=== PATIENT | female | born 1945 | race Caucasian/White ===

== ENCOUNTER → 2018-09-14 | Outpatient (CLI) | payer MEDICARE, BC, OTHER ==
--- NOTE | 2018-09-14 16:16 | RADIOLOGY REPORT (SQ) ---
EXAM DESCRIPTION: MRI CERVICAL SPINE WITHOUT COMPLETED DATE/TIME: 09/14/2018 4:03 pm REASON FOR STUDY: CERVICALGIA M54.2 CERVICALGIA COMPARISON: None. TECHNIQUE: Sagittal and Axial imaging includes T1, T2, STIR and gradient echo sequences. LIMITATIONS: None. FINDINGS: ALIGNMENT: Straightening of cervical lordosis VERTEBRAE: Intact. BONE MARROW: Normal. No marrow replacement or reactive changes. DISCS: Diffuse decreased T2 weighted intervertebral disc signal. Disc space loss of height at C5-6 a nd C6-7 HARDWARE: None in the spine. CORD AND BASE OF BRAIN: Normal in size and signal intensity. SOFT TISSUES: No soft tissue masses. C1-C2: No significant spinal stenosis. C2-C3: No significant spinal stenosis or exit foraminal stenosis. C3-C4: No significant spinal stenosis or exit foraminal stenosis. C4-C5: No significant spinal stenosis or exit foraminal stenosis. C5-C6: Broad diffuse posterior disc bulge and bony spurring is present, partly effacing the ventral t hecal sac and abutting the ventral cord without cord flattening or abnormal intrinsic cord signal. B orderline central canal narrowing High-grade bilateral foraminal narrowing from facet and uncovertebr al hypertrophy. C6-C7: Broad diffuse posterior disc bulge and bony spurring partly effaces the ventral thecal sac wit hout cord flattening. Borderline central canal narrowing. Moderate bilateral foraminal narrowing le ft greater than right C7-T1: No significant spinal stenosis or exit foraminal stenosis. UPPER THORACIC: Incompletely imaged. No significant spinal stenosis or exit foraminal stenosis. OTHER: Diffuse thyromegaly IMPRESSION: Degenerative disc changes most pronounced at C5-6 and C6-7 TECHNICAL DOCUMENTATION: JOB ID: [id number]- All Rights Reserved Reading location - IP/workstation name: [email or web address]
== END ==
LOC: RAD 15:26
PROVIDERS: ATTEND Orthopaedic Surgery Hand Surgery
DX: M50.323 Other cervical disc degeneration at C6-C7 level (principal)
CPT/HCPCS: 72141

== ENCOUNTER → 2018-09-20 | Outpatient (CLI) | payer MEDICARE, BC, OTHER | LOC: RAD 10:19 | PROVIDERS: ATTEND Orthopaedic Surgery Hand Surgery | DX: M54.2 Cervicalgia (principal); Z53.8 Procedure and treatment not carried out for other reasons ==

== ENCOUNTER → 2020-05-21 | Day surgery (SDC) | payer MEDICARE, BC, OTHER ==
[2020-05-18 10:50] LABS: HEMATOCRIT 38.4 % (36.0-47.0); HEMOGLOBIN 12.9 g/dL (12.0-15.5); MEAN CORPUSCULAR HEMOGLOBIN 29.3 pg (27.0-33.4); MEAN CORPUSCULAR HGB CONC 33.5 g/dL (32.0-36.0); MEAN CORPUSCULAR VOLUME 88 fl (80-97); PLATELET COUNT 227 10^3/uL (150-450); RED BLOOD COUNT 4.39 10^6/uL (3.72-5.28); RED CELL DISTRIBUTION WIDTH 13.8 % (11.5-14.0); WHITE BLOOD COUNT 3.8 10^3/uL (4.0-10.5)
[~2020-05-21] MED LIST: ACETAMINOPHEN 325 MG TABLET PO PRN; LACTATED RINGERS 1000 ML IV PRN; LIDOCAINE 0.5% INJ-PF (5 MG/ML) 50 ML SDV SUBCUT PRN; LIDOCAINE 1% INJ-PF (10 MG/ML) 30 ML SDV ONE; PROPOFOL INJ 200 MG/20 ML VIAL IV ONE
[2020-05-21 08:38] VITALS: BP 114/61
--- NOTE | 2020-05-21 12:41 | Discharge Summary ---
Discharge Summary (SDC) - Discharge Final Diagnosis: Ascending colon polyp; extensive diverticulosis of the sigmoid colon Date of Surgery: 05/21/20 Discharge Date: 05/21/20 Condition: Good Forms: EU Anesthesia D/C Instructions, Discharge POC-Surgical Service Treatment or Instructions: INCREASE DIET TOLERATED, NO DRIVING OR OPERATING EQUIPMENT THAT REQUIRES ATTENTION, KEEP SCHEDULED APPOINTMENTS, REPORT UNUSUAL BLEEDING, NAUSEA OR VOMITING Referrals: BRYN BOYER MD [ACTIVE STAFF] - Discharge Diet: As Tolerated Discharge Activity: Activity As Tolerated, No Driving Home Care Assistance: None Needed Report the Following to Your Physician Immediately: Shortness of Breath, Nausea, Vomiting, Increase in Pain, Fever over 101 Degrees, Unusual Bleeding, IV Site Infection Signs
--- NOTE | 2020-05-21 12:45 | Operative Report ---
Operative Report DATE OF SURGERY: 05/21/20 PREOPERATIVE DIAGNOSIS: 1. Left lower quadrant pain. 2. History of complicat ed diverticulitis of the sigmoid colon. 3. Screening for colorectal carcinoma POSTOPERATIVE DIAGNOSIS: Same with. 1. Extensive diverticulosis of the sigmoid colon. 2. Ascending colon polyp OPERATION: 1. Total colonoscopy to cecum. 2. Ascending colon polypectomy SURGEON: BRYN BOYER ANESTHESIA: LMAC TISSUE REMOVED OR ALTERED: 1 polyp a sending colon COMPLICATIONS: None ESTIMATED BLOOD LOSS: Scant INTRAOPERATIVE FINDINGS: See below PROCEDURE: Obtaining informed consent the patient was taken from the preoperative holding area to the main endoscopy suite where monitoring devices were attached to the patient. Plan and surgical timeout were conducted. Appropriate level of LMAC anesthesia was induced. The patient was placed in the left lateral decubitus position with knees to chest. A perianal examination was performed. There was no visible or palpable anorectal pathology. Sphincter tone was felt to be normal. The flexible adult colonoscope was advanced through the anal rectal canal, all the way to the cecum. Visualization of the cecum was achieved by demonstration of the ileocecal valve, the appendiceal orifice and transillumination of the anterior abdominal wall. This was an excellent study on the well-prepped bowel. The colonoscope was withdrawn slowly and methodically checked and the mucosa carefully. There was no evidence of tumor, stricture, bleeding; in the ascending colon mid position was a small polyp, less than 3 mm, removed with the cold forceps device, sent to pathology as ascending colon polyp, and bleeding at site minimal; there were extensive diverticulosis of the sigmoid colon. No evidence of stricture. The scope was slowly withdrawn through the anal rectal canal. Complete visualization of the rectum was achieved with photodocumentation. The scope was withdrawn to the patient's anus. Internal hemorrhoids appreciated the patient tolerated the procedure well and was taken to the recovery area in stable condition. Per surveillance guidelines, patient will be an appropriate candidate for follow-up colonoscopy in [3 to 5 years pending the results of the pathology report.
== END ==
LOC: END 07:04
PROVIDERS: ATTEND Surgery
DX: K57.30 Diverticulosis of large intestine without perforation or abscess without bleeding (principal); D12.3 Benign neoplasm of transverse colon; Z03.818 Encounter for observation for suspected exposure to other biological agents ruled out; E03.9 Hypothyroidism, unspecified; Z79.899 Other long term (current) drug therapy
CPT/HCPCS: 45380; 36415; 85027; 88305 ×2; 00811; U0003; J3490; J2704; C9803; 811; 87635